=== PATIENT | female | born 1985 | race Caucasian/White ===

== ENCOUNTER 2019-12-27 08:51 | Outpatient (CLI) | payer BC, SELFPAY ==
--- NOTE | 2019-12-27 09:06 | CT_ITS ---
WS: [id number] CT scan of the abdomen and pelvis with Oral and IV contrast. Additional two-dimensional coronal and s agittal reconstruction was performed. 12/27/2019 Clinical Data: ABDOMINAL PAIN Comparison: CT abdomen and pelvis, 10/02/2006. DLP: 1240.[address] scans at [facility] use at least one of these dose optimization techniques: automat ed exposure control; mA and/or kV adjustment per patient size (includes targeted exams where dose is matched to clinical indication); or iterative reconstruction. Findings: The lower lungs show no nodules, masses or effusions. The liver, gallbladder, spleen, adrenal glands and pancreas are normal. The kidneys show equal bilateral contrast excretion with no cyst or masses. The abdominal aorta is normal in size. No appendicitis or diverticulitis is seen. Oral contrast is in the stomach, small bowel and colon and there is no bowel dilatation. No abscess, adenopathy, ascites, mass, obstruction or free air is seen . The bladder is unremarkable. There is an IUD in the uterus. No inguinal hernia is seen. The bones of the lower thorax, lumbar spine, pelvis, and hips are normal. CT/CT abdomen pelvis w con* [id number] Impression: Negative CT scan of the abdomen and pelvis.
[2019-12-27] MEDS: iohexol 300 mg/mL 50 mL Btl PO (09:23)
[2019-12-27] MEDS: iohexol 300 mg/mL 100 mL Btl IV (10:42)
== END 2019-12-27 08:52 | disposition home or self-care (01) ==
LOC: RADWPI 08:57
PROVIDERS: Family Provider Family Medicine; PCP Family Medicine; Visit Provider Family Medicine
DX: R10.9 Unspecified abdominal pain (principal)
CPT/HCPCS: 74177; Q9967

== ENCOUNTER 2020-02-13 07:38 | Outpatient (CLI) | payer BC, SELFPAY ==
--- NOTE | 2020-02-13 07:50 | NM_ITS ---
WS: [id number] NUCLEAR MEDICINE HIDA SCAN CLINICAL INFORMATION: RUQ PAIN TECHNIQUE: Following intravenous administration of 7.9 mCi of technetium 99m mebrofenin, images of th e abdomen were obtained over the course of 60 minutes. Next, gallbladder ejection fraction was determ ined by obtaining preprandial and one-hour postprandial images of the gallbladder following oral brent stion of Ensure. COMPARISON: Ultrasound January 22, 2020 FINDINGS: Normal hepatic uptake at 5 minutes. Gallbladder is visualized by 20 minutes. No evidence of acute cho lecystitis. Normal common bile duct and small bowel activity. No evidence of choledocholithiasis. Normal gallbladder ejection fraction 77% within normal limits. No evidence of chronic cholecystitis. NM/NM hepatobiliary w phar* [id number] IMPRESSION: 1. No evidence of acute or chronic cholecystitis. 2. Normal gallbladder ejection fraction 77% within normal limits.
== END 2020-02-13 07:39 | disposition home or self-care (01) ==
PROVIDERS: PCP Family Medicine; Visit Provider Family Medicine
DX: R10.11 Right upper quadrant pain (principal)
CPT/HCPCS: 78227; A9537

== ENCOUNTER 2020-03-03 08:44 | Day surgery (SDC) | payer BC, SELFPAY ==
[2020-03-02 17:09] VITALS: BMI 34.8
[2020-03-03 09:01] VITALS: BP 139/88; PULSE 94; RESP 16; TEMP 36.2; O2SAT 96
[2020-03-03] MEDS: sodium chloride 0.9% 1,000 ML 30 ML IV (09:21)
[2020-03-03 09:34] LABS: OR HCG Qualitative Urine Negative (Negative)
--- NOTE | 2020-03-03 09:43 | ANES.PREANE2 ---
Pre-Anesthetic Assessment Pre-Anesthetic Assessment: Height/Weight: Height 1.68 m Weight 97.976 kg Temp Pulse Resp BP Pulse Ox 97.2 F L 94 16 139/88 96 03/03/20 09:01 03/03/20 09:01 03/03/20 09:01 03/03/20 09:01 03/03/20 09:01 Preop Diagnosis: Chronic cholecystitis Proposed Procedure: Operation Date: 03/03/20 10:15 Proposed Procedures p Laparoscopic Possible Open Cholecystectomy 68376 L82.9(Not Applicable) - Sherwin Allison MD Last intake: Intake Last Liquid Date 03/02/20 Last Liquid Time 19:00 Last Solid Date 03/02/20 Last Solid Time 19:00 Social: Social History: No alcohol and No tobacco Exam: Pre-Anes Outpt Exam: alert, oriented x 3, clear to auscultation bilaterally and regular rate & rhythm Airway: Submandibular: WNL Cervical ROM: WNL MP: 1 Additional comments: teeth ok History/ROS: No significant history except as noted Pulmonary: Pulmonary: None reported CV/HEM: CV/HEM: None reported : : None reported Hepatic: Hepatic: None reported GI: GI: GERD (controlled) Metabolic: Metabolic: None reported Musc/skel: Musc/skel: None reported Neuropsych: Neuropsych: None reported Anesthetic Plan: ASA status: 2 Anesthesia: Anesthesia Evaluation and General Risk of > 500 ml blood loss (7ml/kg in children): No Meds/Allergies Current Medications: Current Medications Generic Name Dose Route Start Last Admin Trade Name Freq PRN Reason Stop Dose Admin Sodium Chloride 1,000 mls @ 30 ml s/hr 03/03/20 09:00 03/03/20 09:21 Sodium Chloride 0.9% IV 03/04/20 08:59 30 mls/hr .Q24H MARJORIE Administration PFSH Anesthesia PFSH: Surgical History H/O oral surgery Family History Mother Cancer breast Diabetes Other CAD (coronary artery disease) Hypertension Denies family history of Anesthesia complication Bleeding disorder Social History Smoking and tobacco status: never smoked Alcohol intake: current Alcohol intake frequency: holidays/special occasions only Household members: spouse Marital status: Current occupational status: employed History of recent travel: No Female Reproductive History: Date of last menstrual period: 02/25/20 Data Anesthesia Other Labs: Laboratory Results - last 48 hr 03/03/20 09:32 Urine HCG, Qual Negative Cardiac Studies: No Data to Display
--- NOTE | 2020-03-03 10:02 | W.PM.OPSUD ---
Surgery/Procedure H&P Update DATE OF PROCEDURE: March 03, 2020 DATE H&P PERFORMED: 02/28/20 H&P UPDATE INFORMATION: I have reviewed H&P completed within last 30 days, I have examined patient prior to procedure and No changes to prior documentation PREOP DIAGNOSIS: Chronic cholecystitis PLANNED PROCEDURE: Operation Date: 03/03/20 10:15 Proposed Procedures p Laparoscopic Possible Open Cholecystectomy 49887 L82.9(Not Applicable) - Sherwin Allison MD
[2020-03-03] MEDS: levofloxacin-dextrose 5 % 500 MG/100 ML PREMIX 100 MG IV (10:31)
--- NOTE | 2020-03-03 11:25 | PM.OP ---
Operative Report Date of procedure: March 03, 2020 Pre-op Diagnosis: Chronic cholecystitis Post-op diagnosis: same Procedure Done: Laparoscopic cholecystectomy Specimens removed/disposition: Gallbladder Surgeon: Sherwin Allison Anesthesia: General Condition: stable Disposition: PACU Procedure: The patient was taken to the operating room and was intubated under general anesthesia. After the antibiotic had been administered, the abdomen was prepped and draped in a sterile manner. Using a #15 blade, a 1 centimeter infraumbilical curvilinear incision was made and using an open Lesley technique the peritoneal cavity was entered. A 10 millimeter port was placed and 15 millimeters of pneumoperitoneum was created. A 10 millimeter, 30 degrees scope was then introduced. Three 5 millimeter ports were placed in the epigastric, midclavicular and the anterior axillary line two fingerbreadths below the costal margin on the right side under the direct visualization. Ratcheted forceps were introduced into the lateral most port and was used to retract the fundus of the gallbladder cephalad and using forceps the infundibulum of the gallbladder was retracted laterally. Using L-hook cautery the peritoneum overlying the Calot's triangle was opened medially and laterally until the cystic duct and the cystic artery were skeletonized. Dissection was carried along the body of the gallbladder and after ensuring critical view of safety, 4 clips applied on the cystic duct and 3 clips applied on the cystic artery and cut leaving, 3 clips on the remaining portion of the duct and 2 clips on the remaining portion of the artery. The rest of the gallbladder was dissected off the liver using L-hook cautery. There was no bleeding or bile leaking noted from the gallbladder fossa and the clips appeared to be in place. An EndoCatch bag was introduced to remove the gallbladder. All the ports were removed under direct visualization and there was no bleeding noted from the port sites. The fascia of the umbilicus was closed using [id number] 0 Vicryl sutures and the subcutaneous tissue was approximated using 3-0 Vicryl sutures. The skin at all four ports were closed using 4-0 Monocryl and Dermabond. A total of 10 millimeters of 0.5% Marcaine was infiltrated around the port sites. The patient was stable throughout the procedure.
[2020-03-03 11:38] VITALS: BP 125/88; PULSE 94; RESP 20; TEMP 36.3; O2SAT 97
[2020-03-03 11:40] VITALS: PULSE 82; RESP 20; O2SAT 96
[2020-03-03 11:49] VITALS: BP 107/84; PULSE 73; RESP 16; TEMP 36.3; O2SAT 98
[2020-03-03] MEDS: HYDROcodone-acetaminophen 5-325 mg Tablet 1 TAB PO (12:01)
[2020-03-03 12:06] VITALS: BP 113/80; PULSE 63; RESP 16; O2SAT 95
== END 2020-03-03 12:29 | disposition home or self-care (01) ==
PROVIDERS: Anesthesiology; PCP Family Medicine; Visit Provider Surgery
PROC: 0FT44ZZ Resection of Gallbladder, Percutaneous Endoscopic Approach (ICD-10-PCS; CPT 47562; principal; 2020-03-03 10:15)
DX: K81.1 Chronic cholecystitis (principal); K21.9 Gastro-esophageal reflux disease without esophagitis
CPT/HCPCS: 47562; 12345; 81025; 84703; 88304; J0131; J1100; J1956; J2370; J2405; J2704; J2710; J3010; J3490; J7030

== ENCOUNTER 2020-09-01 08:11 | Outpatient (CLI) | payer SELFPAY ==
[2020-09-01 08:38] LABS: HF Add Manual Diff No
[2020-09-01 08:40] LABS: Basophils # 0.2 10^3/uL (0.0-0.1); Basophils % 1.2 %; Eosinophils # 0.1 10^3/uL (0.0-0.8); Eosinophils % 0.8 %; Hematocrit 47.4 % (37.0-47.0); Hemoglobin 16.1 g/dL (11.5-15.3); Lymphocytes % 16.6 %; Mean Corpuscular Hemoglobin 29.4 pg (28.0-34.0); Mean Corpuscular Volume 86.5 fL (81-99); Mean Platelet Volume 9.8 fL (7.4-10.4); Monocytes # 0.7 10^3/uL (0.2-0.9); Monocytes % 5.9 %; Neutrophils # 9.21 10^3/uL (1.8-7.7); Neutrophils % 74.9 %; Nucleated Red Blood Cells % 0 %; Platelet Count 360 10^3/cmm (130-400); Red Blood Count 5.48 10^6/uL (4.1-5.3); Red Cell Distribution Width 12.3 % (12.1-15.1); White Blood Count 12.3 10^3/uL (4.0-10.0)
[2020-09-01 09:11] LABS: Alanine Aminotransferase 67 U/L (0-33); Albumin Level 4.3 g/dL (3.5-5.2); Alkaline Phosphatase 95 IU/L (35-105); Anion Gap 15.1 (5-19); Aspartate Amino Transferase 47 U/L (0-32); Blood Urea Nitrogen 10 mg/dL (6-20); Calcium 8.9 mg/dL (8.5-10.5); Carbon Dioxide 23 mmol/L (22-29); Chloride 101 mmol/L (98-107); Chol HDL Ratio 2.15 mg/dL (0.0-4.40); Cholesterol 99 mg/dL (0-200); Globulin 3.5 g/dL (1.3-4.6); Glomerular Filtration Rate 96.4 mL/min (90-130); Glucose 121 mg/dL (65-115); HDL Cholesterol 46 mg/dL (60-100); LDL Cholesterol Calculated 43 mg/dL (50-129); LDL HDL Ratio 0.93 RATIO (0.00-3.22); Osmolality Calculated 280 mOsm/kg (285-295); Potassium 4.1 mmol/L (3.5-5.1); Sodium 135 mmol/L (136-145); Total Bilirubin 0.7 mg/dL (0.15-1.2); Total Protein 7.8 g/dL (6.6-8.7); Triglycerides 48 mg/dL (0-150)
[2020-09-01 09:18] LABS: Estmated Average Glucose 108; Hemoglobin A1C 5.4 % (4.0-6.0)
== END 2020-09-01 08:12 | disposition home or self-care (01) ==
LOC: LAB 08:13
PROVIDERS: PCP Family Medicine; Visit Provider Dermatology
DX: Z13.9 Encounter for screening, unspecified (principal)
CPT/HCPCS: 36415

== ENCOUNTER 2020-12-01 10:46 | Outpatient (CLI) | payer SELFPAY ==
[2020-12-01 11:01] LABS: HF Add Manual Diff No
[2020-12-01 11:07] LABS: Basophils # 0.1 10^3/uL (0.0-0.1); Basophils % 1.3 %; Eosinophils # 0.1 10^3/uL (0.0-0.8); Eosinophils % 1.1 %; Hematocrit 43.6 % (37.0-47.0); Hemoglobin 14.8 g/dL (11.5-15.3); Lymphocytes # 2.3 10^3/uL (0.8-4.8); Lymphocytes % 23.7 %; Mean Corpuscular HGB Conc 33.9 g/dL (30.0-36.0); Mean Corpuscular Hemoglobin 29.3 pg (28.0-34.0); Mean Corpuscular Volume 86.3 fl (81-99); Mean Platelet Volume 9.7 fL (7.4-10.4); Monocytes # 0.7 10^3/uL (0.2-0.9); Monocytes % 7.7 %; Neutrophils # 6.23 10^3/uL (1.8-7.7); Neutrophils % 65.6 %; Nucleated Red Blood Cells % 0 %; Platelet Count 356 10^3/cmm (130-400); Red Blood Count 5.05 10^6/uL (4.1-5.3); Red Cell Distribution Width 12.2 % (12.1-15.1); White Blood Count 9.5 10^3/uL (4.0-10.0)
[2020-12-01 11:26] LABS: Estmated Average Glucose 100; Hemoglobin A1C 5.1 % (4.0-6.0)
[2020-12-01 12:29] LABS: 25 Hydroxy Vitamin D 28 ng/mL (30-100); Alanine Aminotransferase 88 U/L (0-33); Albumin Level 4.2 g/dL (3.5-5.2); Alkaline Phosphatase 92 IU/L (35-105); Anion Gap 11.9 (5-19); Aspartate Amino Transferase 74 U/L (0-32); Blood Urea Nitrogen 9 mg/dL (6-20); Calcium 8.9 mg/dL (8.5-10.5); Carbon Dioxide 24 mmol/L (22-29); Chloride 101 mmol/L (98-107); Chol HDL Ratio 2.13 mg/dL (0.0-4.40); Cholesterol 100 mg/dL (0-200); Globulin 3.4 g/dL (1.3-4.6); Glomerular Filtration Rate 115.1 mL/min (90-130); Glucose 98 mg/dL (65-115); HDL Cholesterol 47 mg/dL (60-100); LDL Cholesterol Calculated 44 mg/dL (50-129); LDL HDL Ratio 0.94 RATIO (0.00-3.22); Osmolality Calculated 275 mOsm/kg (285-295); Potassium 3.9 mmol/L (3.5-5.1); Sodium 133 mmol/L (136-145); Total Bilirubin 0.4 mg/dL (0.15-1.2); Total Protein 7.6 g/dL (6.6-8.7); Triglycerides 43 mg/dL (0-150)
== END 2020-12-01 10:47 | disposition home or self-care (01) ==
PROVIDERS: PCP Family Medicine; Visit Provider Dermatology
DX: Z01.89 Encounter for other specified special examinations (principal)

== ENCOUNTER 2021-01-25 07:37 | Outpatient (CLI) | payer OTHER, SELFPAY ==
--- NOTE | 2021-01-25 07:44 | MR_ITS ---
WS: [id number] MRI LEFT ANKLE NONCONTRAST TECHNIQUE: Sagittal proton density, sagittal STIR, axial proton density, axial T1, axial T2 fat sat, coronal proton density, coronal proton density fat sat, coronal T2 fat sat. CLINICAL INFORMATION: pain COMPARISON: None. FINDINGS: Normal ankle mortise. Normal medial and lateral malleolus. Palpable marker overlying the medial malle olus. Normal underlying soft tissues. No edema or avulsion involving the medial malleolus. Tenosynovi tis along the tibialis posterior along the medial malleolus. This is in the area of palpable marker a nd may correspond to the patient's pain. Normal talar dome. No evidence of avascular necrosis. Normal talocalcaneal articulation. Normal tibial plafond. Distal Achilles is normal in appearance. No rmal plantar aponeurosis. Tiny enthesophyte at the Achilles insertion. Normal peroneus longus and brevis. Normal navicular. Normal bone marrow signal in the tarsal bones. Extensor and flexor compartment tendons otherwise normal. MR/MR ankle LT wo con* [id number] IMPRESSION: 1. Normal bone marrow signal in the medial malleolus. No edema or avulsion. 2. Tenosynovitis in the underlying tibialis posterior in the area of the palpa ble marker which may correspond to the patient's pain. 3. Extensor and flexor compartment tendons are otherwise normal. 4. Normal peroneus longus and brevis. 5. Normal Achilles tendon. Tiny Achilles enthesophyte. 6. Normal ankle mortise. Normal bone marrow signal in the talar dome. 7. No other significant findings.
== END 2021-01-25 07:38 | disposition home or self-care (01) ==
LOC: RADSHAW 07:38
PROVIDERS: PCP Family Medicine; Visit Provider Podiatrist Foot & Ankle Surgery
DX: M25.572 Pain in left ankle and joints of left foot (principal); M65.9 Synovitis and tenosynovitis, unspecified
CPT/HCPCS: 73721

== ENCOUNTER → 2021-10-11 11:25 | Outpatient (BNVA) | payer OTHER, SELFPAY | PROVIDERS: PCP Family Medicine; Visit Provider Family Medicine | DX: R10.9 Unspecified abdominal pain (principal); N39.0 Urinary tract infection, site not specified | CPT/HCPCS: 81000 ==

== ENCOUNTER → 2022-07-25 11:01 | Outpatient (BNVA) | payer OTHER, SELFPAY | PROVIDERS: PCP Family Medicine; Visit Provider Podiatrist Foot & Ankle Surgery | DX: M72.2 Plantar fascial fibromatosis (principal) | CPT/HCPCS: 73630 ==

== ENCOUNTER 2022-09-26 08:47 | Outpatient (CLI) | payer OTHER, SELFPAY ==
--- NOTE | 2022-09-26 09:01 | MM_ITS ---
WS: [id number] VIEWS: MLO and CC views both breasts. 3D digital tomosynthesis is also included in this exam. No priors. Findings: Small area of architectural distortion noted in the lower medial quadrant of the right breast at mid depth level. No suspicious calcification noted. There is also a smoothly marginated 9 mm nodule noted in the medial left breast at about mid depth. This does not have suspicious appearance. Bilateral re gional sonography of both areas in addition to compression spot images of the right breast would be i ndicated for further workup. The remainder of both breasts were unremarkable.There are scattered area s of fibroglandular density. MM/[place] [id number] Impression: BI-RADS: 0-Incomplete: Need additional imaging evaluation FOLLOW-UP: See Report This mammogram was also analyzed by the Computer Aided Detection System R2 Imag e Billboard Poster Helper.
== END 2022-09-26 08:48 | disposition home or self-care (01) ==
LOC: RAD 08:53 → MOBLMAM 09:01
PROVIDERS: PCP Family Medicine; Visit Provider Family Medicine
DX: Z12.31 Encounter for screening mammogram for malignant neoplasm of breast (principal); Z80.3 Family history of malignant neoplasm of breast
CPT/HCPCS: 77063; 77067

== ENCOUNTER 2022-11-07 13:36 | Outpatient (CLI) | payer OTHER, SELFPAY ==
--- NOTE | 2022-11-07 13:42 | US_ITS ---
WS: [id number] Exam: US breast BI limited* [id number] Date/Time of Exam: 11/07/2022 2:29 PM Reason For Exam: ABNORMAL MAMMO Regional ultrasound of the medial RIGHT breast is performed. A 0.64 x 0.7 1.37 cm irregular predominantly hypoechoic nodular density is noted at about the 4 o'cyn ck position in the medial RIGHT breast about 4 cm from the nipple. This corresponds to the abnormalit y identified on recent mammography. This is an indeterminate lesion and biopsy would be indicated for further work-up. There were no other significant findings in this region. Regional ultrasound of the LEFT breast was performed involving the LEFT axilla as well as the 9 o'cyn ck position in the LEFT breast. At the 9 o'clock position there is a well-defined cyst that measures 0.91 x 0.8 x 0.67 cm. No suspicious solid lesions were identified in these areas. IMPRESSION: 1. Indeterminate irregular hypoechoic nodule at the 4 o'clock position in the RIGHT breast that corre sponds to an area of architectural distortion seen on mammography. Biopsy is indicated. BI-RADS Categ ory 4. 2. 9 mm cyst at the 9 o'clock position in the LEFT breast. No suspicious ultrasound findings in the L EFT breast. Recommendations: RIGHT breast biopsy is indicated. See above discussion.
--- NOTE | 2022-11-07 13:42 | MM_ITS ---
WS: [id number] VIEWS: MLO, CC, and ML views both breasts. 3D digital tomosynthesis is also included in this exam. Comparison made with prior exam of screening mammogram performed 09/26/2022. Findings: Small area of architectural distortion persists on additional views and tomograms involving the lower medial quadrant of the RIGHT breast. Also a 9 mm smoothly marginated nodule seen in the medial LEFT breast is present on the additional diagnostic images. Scattered areas of fibroglandular density agai n noted. Bilateral regional ultrasound indicated for further work-up. Impression: MM/[place] [id number] BI-RADS: 0-Incomplete: Need additional imaging evaluation FOLLOW-UP: See Report This mammogram was also analyzed by the Computer Aided Detection System R2 Imag e Excellence Leader.
== END 2022-11-07 13:37 | disposition home or self-care (01) ==
PROVIDERS: PCP Family Medicine; Visit Provider Family Medicine
DX: N63.14 Unspecified lump in the right breast, lower inner quadrant (principal); N60.02 Solitary cyst of left breast
CPT/HCPCS: 76642; 77062; G0279

== ENCOUNTER 2022-11-23 10:57 | Outpatient (CLI) | payer OTHER, SELFPAY ==
--- NOTE | 2022-11-23 11:11 | US_ITS ---
WS: [id number] ULTRASOUND-GUIDED RIGHT BREAST BIOPSY CLINICAL INFORMATION: ABNORMAL MAMMO COMPARISON: 11/07/2022 FINDINGS: The procedure including risks, benefits, and complications were discussed with the patient who agreed to proceed. Using sterile technique patient was prepped and draped in the usual sterile fashion. Aft er 1% lidocaine utilizing real-time ultrasound guidance 6 14-gauge cores were obtained of the RIGHT b reast lesion at the 4 o'clock position 4 cm from the nipple. Subsequently a titanium clip was placed in the biopsy cavity. No immediate complications. Pathology demonstrates Right breast, 4:00 position, 4.0 cm from nipple, needle core biopsy: 1. Benign proliferative breast disease. Pathology comment: There is a spectrum of change including cyst formation with evidence of rupture, fibrosis, adenosis, and duct ectasia. There is no evidence of atypical ductal or lobular hyperplasia or evidence of malignancy. IMPRESSION: 1. Uncomplicated ultrasound-guided RIGHT breast biopsy. 2. The pathology demonstrates benign proliferative disease. US/[place] [id number] BI-RADS: 2-Benign FOLLOW UP: 1 Year Follow-up Recommend return to annual screening mammography.
== END 2022-11-23 10:58 | disposition home or self-care (01) ==
PROVIDERS: PCP Family Medicine; Visit Provider Family Medicine
DX: N64.89 Other specified disorders of breast (principal); R92.8 Other abnormal and inconclusive findings on diagnostic imaging of breast; N60.41 Mammary duct ectasia of right breast
CPT/HCPCS: 19083; 88305

== ENCOUNTER 2023-12-04 07:57 | Outpatient (CLI) | payer OTHER, SELFPAY ==
--- NOTE | 2023-12-04 08:01 | MM_ITS ---
WS: [id number] BILATERAL SCREENING DIGITAL TOMOSYNTHESIS MAMMOGRAM WITH CAD HISTORY: SCREENING COMPARISON: 11/07/2022, 09/26/2022, Bilateral CC and MLO views with tomosynthesis and synthetic mammography submitted. Computer aided det ection analyzed. Breast composition: There are scattered areas of fibroglandular density. No suspicious masses, microc alcifications or architectural distortion. Ribbon-shaped biopsy clip inferomedial RIGHT breast. There are no suspicious calcifications or masses. Focal asymmetries in the upper outer quadrant are stable . MM/MM scr BI tomosynthesis [id number] IMPRESSION: BI-RADS: 2 - Benign. FOLLOW UP: 1 Year Follow-up
== END 2023-12-04 07:58 | disposition home or self-care (01) ==
LOC: RAD 07:57
PROVIDERS: PCP Family Medicine; Visit Provider Nurse Practitioner Family
DX: Z12.31 Encounter for screening mammogram for malignant neoplasm of breast (principal); R92.323 Mammographic fibroglandular density, bilateral breasts; N64.89 Other specified disorders of breast
CPT/HCPCS: 77063; 77067

== ENCOUNTER 2024-11-21 08:01 | Outpatient (CLI) | payer SELFPAY ==
[2024-11-21 08:55] LABS: HF Add Manual Diff No
[2024-11-21 09:01] LABS: Hematocrit 46.2 % (36-47); Hemoglobin 15.60 g/dL (11.27-16.99); Mean Corpuscular HGB Conc 33.8 g/dL (30-55); Mean Corpuscular Hemoglobin 28.4 pg (27-33); Mean Corpuscular Volume 84.2 fl (85-98); Nucleated Red Blood Cells % 0 %; Platelet Count 390 10^3/cmm (157-399); Red Blood Count 5.49 10^6/uL (3.85-5.65); White Blood Count 9.97 10^3/uL (3.29-11.43)
[2024-11-21 09:21] LABS: Alanine Aminotransferase 34 U/L (0-33); Albumin Level 4.2 g/dL (3.5-5.2); Alkaline Phosphatase 98 U/L (35-105); Anion Gap 17.2 (5-19); Aspartate Amino Transferase 27 U/L (0-32); Blood Urea Nitrogen 9 mg/dL (6-20); Calcium 9.1 mg/dL (8.5-10.5); Carbon Dioxide 21 mmol/L (22-29); Chloride 103 mmol/L (98-107); Cholesterol 99 mg/dL (0-200); Globulin 4.0 g/dL (1.3-4.6); Glucose 113 mg/dL (65-115); HDL Cholesterol 43 mg/dL (60-100); Osmolality Calculated 283 mOsm/kg (285-295); Potassium 4.2 mmol/L (3.5-5.1); Sodium 137 mmol/L (136-145); Total Protein 8.2 g/dL (6.6-8.7); Triglycerides 44 mg/dL (0-150)
[2024-11-21 09:26] LABS: Estmated Average Glucose 117; Hemoglobin A1C 5.7 % (4.0-6.0)
== END 2024-11-21 08:02 | disposition home or self-care (01) ==
PROVIDERS: PCP Family Medicine; Visit Provider Dermatology
DX: Z01.89 Encounter for other specified special examinations (principal)

== ENCOUNTER 2024-12-05 09:07 | Outpatient (CLI) | payer OTHER, SELFPAY ==
--- NOTE | 2024-12-05 09:11 | MM_ITS ---
WS: [id number] BILATERAL SCREENING DIGITAL TOMOSYNTHESIS MAMMOGRAM WITH CAD HISTORY: ANNUAL SCREENING COMPARISON: 12/04/2023, 11/07/2022, Bilateral CC and MLO views with tomosynthesis and synthetic mammography submitted. Computer aided detection analyzed. Breast composition: The breasts are heterogeneously dense, which may obscure small masses. No suspicious masses, microcalcifications or architectural distortion. Slightly lobulated mass in the upper outer quadrant RIGHT breast posterior depth is identified. New mass since the prior study. Mass measures 5 x 4 x 5 mm. No additional suspicious findings. Prior biopsy clip in the medial RIGHT breast. No suspicious grouping of calcifications. MM/MM scr BI tomosynthesis [id number] IMPRESSION: BI-RADS: 0 - Incomplete: Need additional imaging evaluation FOLLOW UP: Need Additional Imaging RIGHT breast: Spot compression views (CC and MLO). True ML. Ultrasound to follo w if abnormality persists.
== END 2024-12-05 09:08 | disposition home or self-care (01) ==
LOC: RAD 09:08
PROVIDERS: PCP Family Medicine; Visit Provider Nurse Practitioner Family
DX: Z12.31 Encounter for screening mammogram for malignant neoplasm of breast (principal); R92.333 Mammographic heterogeneous density, bilateral breasts; N63.11 Unspecified lump in the right breast, upper outer quadrant; Z96.89 Presence of other specified functional implants
CPT/HCPCS: 77063; 77067

== ENCOUNTER 2024-12-30 09:26 | Outpatient (CLI) | payer OTHER, SELFPAY ==
--- NOTE | 2024-12-30 | MM_ITS ---
WS: [id number] ADDITIONAL VIEWS RIGHT MAMMOGRAM WITH DIGITAL BREAST TOMOSYNTHESIS. RIGHT BREAST ULTRASOUND HISTORY: ABNORMAL MAMMOGRAM COMPARISON: 12/05/2024, 12/04/2023, 11/07/2022 RIGHT MAMMOGRAM: Spot compression views and true ML with digital breast tomosynthesis and SM. Breast composition: The breasts are heterogeneously dense, which may obscure small masses. Reidentified is a well-circumscribed mass in the upper outer quadrant of the RIGHT breast at a posterior depth. Mass measures 4 x 4 x 5 mm and is partially obscured by the adjacent dense fibroglandular tissue. This may be a small lymph node. There may be several small lymph nodes in this location. No distortion. Ultrasound to follow. RIGHT BREAST ULTRASOUND 2-D and color Doppler imaging submitted. Hypoechoic lobulated mass 11:00 in the posterior depth, 1 cm from the nipple measures 0.8 x 0.9 x 0.3 cm. This does appear to be 2 small adjacent lymph nodes or single lobulated lymph node. No increased vascularity. MM/MM diag RT tomosynthesis [id number] IMPRESSION: BI-RADS: 2 - Benign FOLLOW UP: 1 Year Follow-up Intramammary lymph nodes upper outer quadrant RIGHT breast.
--- NOTE | 2024-12-30 09:29 | US_ITS ---
WS: [id number] ADDITIONAL VIEWS RIGHT MAMMOGRAM WITH DIGITAL BREAST TOMOSYNTHESIS. RIGHT BREAST ULTRASOUND HISTORY: ABNORMAL MAMMOGRAM COMPARISON: 12/05/2024, 12/04/2023, 11/07/2022 RIGHT MAMMOGRAM: Spot compression views and true ML with digital breast tomosynthesis and SM. Breast composition: The breasts are heterogeneously dense, which may obscure small masses. Reidentified is a well-circumscribed mass in the upper outer quadrant of the RIGHT breast at a posterior depth. Mass measures 4 x 4 x 5 mm and is partially obscured by the adjacent dense fibroglandular tissue. This may be a small lymph node. There may be several small lymph nodes in this location. No distortion. Ultrasound to follow. RIGHT BREAST ULTRASOUND 2-D and color Doppler imaging submitted. Hypoechoic lobulated mass 11:00 in the posterior depth, 1 cm from the nipple measures 0.8 x 0.9 x 0.3 cm. This does appear to be 2 small adjacent lymph nodes or single lobulated lymph node. No increased vascularity. US/US breast RT limited* [id number] IMPRESSION: BI-RADS: 2 - Benign FOLLOW UP: 1 Year Follow-up Intramammary lymph nodes upper outer quadrant RIGHT breast.
== END 2024-12-30 09:27 | disposition home or self-care (01) ==
LOC: RAD 09:26
PROVIDERS: PCP Family Medicine; Visit Provider Nurse Practitioner Family
DX: R92.8 Other abnormal and inconclusive findings on diagnostic imaging of breast (principal); N63.24 Unspecified lump in the left breast, lower inner quadrant; R92.333 Mammographic heterogeneous density, bilateral breasts; N64.89 Other specified disorders of breast
CPT/HCPCS: 76642; 77061; G0279